=== PATIENT | male | born 1990 | race African-American/Black ===

== ENCOUNTER 2019-07-24 10:41 | Emergency (ER) | payer BC, OTHER ==
[2019-07-24 10:49] VITALS: BP 153/80; PULSE 111; TEMP 99.6; BMI 27.3
--- NOTE | 2019-07-24 11:44 | PDOC ---
History of Present Illness - General Chief Complaint: Injury Stated Complaint: PAIN Time Seen by Provider: 07/24/19 11:33 History Source: Patient - History of Present Illness Timing/Duration: reports: yesterday Location: reports: feet Past History - Past Medical History Allergies/Adverse Reactions: Allergies Allergy/AdvReac Type Severity Reaction Status Date / Time No Known Allergies Allergy Verified 07/24/19 10:49 Home Medications: Ambulatory Orders NK [No Known Home Medication] 07/24/19 COPD: No - Psycho Social/Smoking Cessation Hx Smoking History: Never smoked Hx Alcohol Use: No Drug/Substance Use Hx: No Review of Systems - Review of Systems Constitutional: No: Chills, Fever Integumentary: Yes: Bruising *Physical Exam - Vital Signs Last Vital Signs Temp Pulse Resp BP Pulse Ox 99.6 F 111 H 14 153/80 98 07/24/19 10:47 07/24/19 10:47 07/24/19 10:47 07/24/19 10:47 07/24/19 10:47 - Physical Exam General Appearance: Yes: Appropriately Dressed. No: Apparent Distress HEENT: positive: Normal Voice Neck: positive: Supple Respiratory/Chest: negative: Respiratory Distress Extremity: positive: Other (ecchymosis w/ superficial abrasions to R heel, no joint swelling or deformity, neg Pate's test) Integumentary: positive: Dry, Warm Neurologic: positive: Fully Oriented, Alert, Normal Mood/Affect Medical Decision Making - Medical Decision Making 07/24/19 11:37 28-year-old male denies any past medical history here for evaluation of R foot injury. Patient states while helping a friend to carry [employer] tank last night the fish tank slipped and corner of fish tank grazed his right heel. Has some pain to site but able to bear weight without any difficulty per patient tetanus up-to-date see exam R heel abrasion No e/o serious injury on exam Local wound care in ED Tetanus uptodate Dc to return for signs of infxn as discussed 07/24/19 11:46 Discharge - Discharge Information Problems reviewed: Yes Clinical Impression/Diagnosis: Heel abrasion Qualifiers: Encounter type: initial encounter Laterality: right Qualified Code(s): S90.811A - Abrasion, right foot, initial encounter Condition: Good Disposition: HOME - Follow up/Referral - Patient Discharge Instructions Patient Printed Discharge Instructions: DI for Abrasion - Post Discharge Activity
== END 2019-07-24 12:00 | disposition home or self-care (01) ==
LOC: JERFT 10:41
DX: S90.811A Abrasion, right foot, initial encounter (principal); W20.8XXA Other cause of strike by thrown, projected or falling object, initial encounter; Y93.89 Activity, other specified; Y92.9 Unspecified place or not applicable
CPT/HCPCS: 99281-25

== ENCOUNTER 2019-12-02 20:05 | Emergency (ER) | payer OTHER, BC ==
[2019-12-02 20:10] VITALS: BP 128/76; PULSE 96; TEMP 98.3; BMI 26.6
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
== END 2019-12-02 21:44 | disposition home or self-care (01) ==
LOC: JERFT 20:05
DX: S89.81XA Other specified injuries of right lower leg, initial encounter (principal); V44.5XXA Car driver injured in collision with heavy transport vehicle or bus in traffic accident, initial encounter; Y92.414 Local residential or business street as the place of occurrence of the external cause; Y93.89 Activity, other specified; Y99.8 Other external cause status
CPT/HCPCS: 99283-25